=== PATIENT | female | born 1980 | race Caucasian/White ===

== ENCOUNTER 2017-01-28 05:33 | Inpatient (IN) | payer OTHER ==
[2017-01-28] VITALS (9 sets, daily range): BP systolic 114–141; BP diastolic 59–74
[~2017-01-28] VITALS: Ht 154.9 cm; Wt 75.0 kg
[~2017-01-28 05:33] MED LIST: PRENTAB55 PO
[2017-01-28] MEDS ORDERED: LR 1,000 ML IV SCH (06:00)
[2017-01-28] MEDS ORDERED: BICITRA 30ML SOLN UDC PO ONE (06:00)
[2017-01-28] MEDS ORDERED: LR 1,000 ML IV ONE (06:00)
[2017-01-28 06:19] LABS: MEAN CORPUSCULAR HEMOGLOBIN 33.5 pg (27.0-33.0); MEAN CORPUSCULAR HGB CONC 35.2 g/dl (32.0-36.5); MEAN CORPUSCULAR VOLUME 95.2 fl (80.0-96.0); WHITE BLOOD COUNT 9.1 K/mm3 (4.0-10.0)
[2017-01-28] MEDS ORDERED: MORPHINE PRES-FREE INJ 10 MG/10 ML VIAL (J2274) As Ordered ONE (08:19)
[2017-01-28] MEDS ORDERED: ePHEDrine SULFATE 25 MG/5 ML(5MG/ML) SYRINGE As Ordered ONE (08:19)
[2017-01-28] MEDS ORDERED: OXYTOCIN INJ 10 UNITS/ML VIAL (J2590) As Ordered ONE (08:19)
[2017-01-28] MEDS ORDERED: PHENYLephrine HCL 500 MCG/5 ML (100MCG/ML) SYRINGE (J2370) As Ordered ONE (08:19)
[2017-01-28] MEDS ORDERED: ONDANSETRON 4MG/2ML VIAL (J2405) As Ordered ONE (08:20)
[2017-01-28] MEDS ORDERED: KETOROLAC 60 MG/2 ML VIAL (J1885) As Ordered ONE (08:20)
[2017-01-28] MEDS ORDERED: MIDAZOLAM INJ 2 MG/2 ML VIAL (J2250) As Ordered ONE (09:48)
[2017-01-28] MEDS ORDERED: fentaNYL 100 MCG/2 ML INJECTION (J3010) As Ordered ONE ×2 (09:51→10:48)
[2017-01-28] MEDS ORDERED: SUCCINYLCHOLINE 100 MG/5 ML SYRINGE (J0330) As Ordered ONE ×2 (09:54→10:24)
[2017-01-28] MEDS ORDERED: PROPOFOL 200 MG/20 ML VIAL As Ordered ONE ×2 (10:24→10:46)
[2017-01-28] MEDS ORDERED: ROCURONIUM BROMIDE 50 MG/5 ML VIAL As Ordered ONE (10:24)
[2017-01-28] MEDS ORDERED: ceFAZolin 1GM INJ (J0690) As Ordered ONE (10:40)
[2017-01-28] MEDS ORDERED: ONDANSETRON 4MG/2ML VIAL (J2405) IV PRN (11:15)
[2017-01-28] MEDS ORDERED: MEASLES,MUMPS,RUBELLA VACCINE INJ (MMR-II) (90707) SC SCH (11:15)
[2017-01-28] MEDS ORDERED: RHOGAM 300 MCG (1500 IU) INJ (J2790) IM SCH (11:15)
[2017-01-28] MEDS ORDERED: PERCOCET 5MG/325MG TAB PO PRN (11:15)
[2017-01-28] MEDS: LR 1,000 ML IV SCH ×2 (13:30→20:29)
[2017-01-28] MEDS: KETOROLAC 30 MG/ML VIAL (J1885) IV SCH ×2 (15:49→21:02)
[2017-01-28] MEDS: DOCUSATE SODIUM 100 MG CAP PO SCH (21:01)
--- NOTE | 2017-01-28 22:22 | RO ---
DATE OF PROCEDURE: 01/28/2017 PREPROCEDURE DIAGNOSIS: Term intrauterine with a history of prior section. POSTPROCEDURE DIAGNOSES: 1. Term intrauterine with a history of prior section, delivered. 2. Extensive intra-abdominal adhesions, including dense adhesions of the bladder to the uterus. Thin lower uterine segment. OPERATION PERFORMED: Repeat low transverse section. SURGEON: Naila Dan MD DELI ASSOCIATE: Dr. Alfonso Alvarado and Dr. Case Chua CLINICAL SERVICE: Obstetrics. ANESTHESIA: Spinal, converted to general endotracheal anesthesia MATERIAL FORWARDED TO LAB FOR EXAMINATION: None. DESCRIPTION OF FINDINGS: There were dense adhesions of the uterus within the peritoneal cavity, such that the uterus could not be exteriorized. The bladder was adhered high up on the uterus. In repairing the hysterotomy, it was very difficult to avoid injury to the bladder, such that we had to take stitches down and backfill the bladder to confirm that there was no bladder injury. There was no bladder injury; however, the amount of good lower uterine segment that was available to close the hysterotomy was very limited and so the lower uterine segment is very thin and it is not advisable that she become again in the future. Female , OT position. Copious amniotic fluid. scores of 8 and 9. Weight 3612 grams, which is 7 pounds 15 ounces. Ovaries and fallopian tubes were not observed given that the uterus could not be exteriorized. INFECTION CLASSIFICATION: II. INDICATION FOR OPERATION: Gayatri is a 37-year-old, 2, now para 2-0-0-2 who has a history of a prior section that was performed in [place] at 39 weeks for abruption in the setting of preeclampsia and she desired a repeat section. This current was uncomplicated. ESTIMATED BLOOD LOSS: 600 mL. FLUIDS: 3100 mL of lactated Ringers. URINE OUTPUT: 500 mL of clear yellow urine. DESCRIPTION OF PROCEDURE: Gayatri was taken to the operating room, spinal anesthesia was administered. Odom catheter and bilateral sequential compression devices (SCD) were placed. She was prepped and draped in a normal sterile fashion in the dorsal supine position with a left lateral tilt. Time-out was performed to confirm her name, date of , procedure, and indications. The surgical team, nursing staff, and anesthesia were all in agreement. Spinal anesthesia was found to be adequate using an Allis clamp. She received 2 grams of IV Ancef prophylactically and she was re-dosed with 1 gram at the end of the case given that the surgery took 2-1/2 hours. A Pfannenstiel skin incision was made through the previous Pfannenstiel scar from her previous operation. Scalpel was employed and the incision carried down through to the underlying layer of fascia. The fascia was incised in the midline, and the incision was extended laterally with Blake scissors. Superior and inferior aspects of the fascial incision were grasped with Stacia clamps, elevated, and the underlying rectus muscles were dissected off bluntly and sharply. The peritoneum was entered digitally, and the rectus muscles were in the midline. It was very apparent as we entered the peritoneum that there were extensive adhesions of the uterus within the intraperitoneal cavity. The peritoneal incision was extended superiorly and inferiorly with good visualization of the bladder. It was noted that the bladder was adhesed high up on the uterus with adhesions on the sides of the bladder over to the peritoneum, higher than would be expected normally. Bladder blade was inserted and it was noted that we could not make a bladder flap given that there was no vesicouterine peritoneum that could be easily pulled up to create the flap. After acknowledging adhesion of the bladder to the uterus, we made the hysterotomy slightly higher, approximately 1 cm or so than we otherwise would have. We scored the lower uterine segment in a transverse fashion with a scalpel and entered the uterus bluntly and extended the incision with traction. Copious amniotic fluid was noted. The bladder blade was remove and the 's head was elevated to the level of the incision. Vacuum was applied but did not get adequate suction and immediately popped off. We then made an incision in the right rectus bundle and the head was then easily delivered occiput transverse through the hysterotomy as fundal pressure was applied. Head was delivered atraumatically and the anterior shoulder, posterior shoulder, and corpus were delivered without difficulty. Nose and mouth were suctioned with bulb suction, and cord was clamped times two and cut. The infant was handed off to the awaiting nursing team. The placenta was removed manually. The uterus was left in situ given that we could not exteriorize it with the dense adhesions above. We cleared the uterus of all clots and debris with a dry lap. We repaired the uterine incision with #0 Vicryl suture in a running locking fashion, noting the bladder was adhered up high on the lower uterine segment. We did apply a second layer of #0 Monocryl in an imbricating fashion and inspected the incision and noted at that point that the bladder was very close so we backfilled the bladder with formula and with backfilling the bladder approximately 60 mL, we noted that the top of the dome of the bladder was very close to the hysterotomy. There was no blood in the Odom and there was no leak of the formula onto the surgical field; however, just given the proximity, there was concern that over time she could develop a uterovesical fistula, and so we took out the imbricating suture line and even still it appeared to have areas where the bladder was brought up too close to the hysterotomy. At that point, I called for Dr. Chua to come in to consult. He agreed with our assessment. We began at that point to open up the hysterotomy in a few locations where the bladder was caught up into the hysterotomy. We then dissected the area thoroughly, bringing the bladder line away from the hysterotomy incision; however, there was very thin lower uterine segment available to re-close with #0 Vicryl suture. It was completely closed and hemostatic and there was no bladder injury whatsoever. Jared was applied over the hysterotomy line. With backfilling the bladder again, there was no leakage of formula onto the surgical field. However, given how much adhesion she has within the abdomen, given how thin the lower uterine segment layer is, we advised that she does not become again given potential for complications in the future. (Patient is aware of this recommendation.) At that point, we used #0 Vicryl suture to close the small rectus incision that was previously made. There was good hemostasis there. We also reapproximated the rectus muscles to one another to be able to cover the bladder using #0 Vicryl suture in two figure of eights. We reapproximated the fascia with #0 Vicryl suture in a running fashion. I copiously irrigated the subcutaneous tissue. The Sihloh's fascia was reapproximated using #3-0 Vicryl suture in a running fashion. Skin edges were reapproximated using three inverted, interrupted stitches using #3-0 Vicryl suture, followed by a running subcuticular stitch using #4-0 Monocryl suture. The incision was cleaned using a wet lap, dried with a dry lap. Steri-Strips were applied in the usual fashion perpendicular to the Pfannenstiel incision. Telfa was layered on top of the Steri-Strips, followed by a dry sterile towel. Surgical drapes were removed, and the sterile towel was removed and a pressure applied over the entire surgical incision. The vagina was cleared of all blood clot without active bleeding noted. Fundus was firm at the umbilicus. All counts were correct times two. Procedure was without complications, and she tolerated the procedure well. She did have to be converted to general endotracheal anesthesia while we were repairing the hysterotomy the second time. She was awakened from general endotracheal anesthesia in good condition. She was taken to the recovery room on labor and delivery. CARIN
[2017-01-29] VITALS (7 sets, daily range): BP systolic 110–144; BP diastolic 60–85
[2017-01-29] MEDS: KETOROLAC 30 MG/ML VIAL (J1885) IV SCH ×2 (02:37→09:10)
[2017-01-29] MEDS: LR 1,000 ML IV SCH ×3 (05:30→21:30)
[2017-01-29 07:07] LABS: MEAN CORPUSCULAR HEMOGLOBIN 33.4 pg (27.0-33.0); MEAN CORPUSCULAR HGB CONC 34.6 g/dl (32.0-36.5); MEAN CORPUSCULAR VOLUME 96.5 fl (80.0-96.0); RED CELL DISTRIBUTION WIDTH 12.3 % (11.5-14.5); WHITE BLOOD COUNT 10.2 K/mm3 (4.0-10.0)
[2017-01-29] MEDS: PRENATAL VITAMIN TAB PO SCH (09:10)
[2017-01-29] MEDS: DOCUSATE SODIUM 100 MG CAP PO SCH ×2 (09:10→21:49)
--- NOTE | 2017-01-29 12:32 | IPNPDOC ---
Text Note Date of Service The patient was seen on 01/29/17. NOTE Post-Op Day 1 Gayatri is a 37yo [id number] doing well on post-op day 1 s/p uncomplicated RLTCS at 39w1d. Surgery notable for close proximity of hysterotomy to the bladder, but bladder interrogation with back-filling revealed no defect and no blood in the urine. Odom was kept in for 24hr after surgery to prevent discomfort with urination given the extent of bladder manipulation we performed. She is with ease. Lochia normal, spontaneously voiding and ambulating without difficulty. Tolerating regular diet. Denies f/c/n/v/SOB/CP/CARABALLO /abdominal pain. Last night temp of 100.9F temporal documented at 0200 then immediately re-taken was 100.5F. Pt never felt febrile. 2hr re-check with NO tylenol in-between was completely normal. Vitals wnl, afebrile Exam: General: WDWN, NAD, resting comfortably Abdomen: soft, NTTP, fundus firm u-2cm, pfannensteil with no surrounding erythema or drainage, steri strips intact Extremities: no tenderness of calves bilaterally Labs: H/H (admission): 13.1/37.3 H/H (POD 1): 10.9/31.6 Assessment: Gayatri is a 37yo [id number] doing well on post-op day 1 s/p uncomplicated RLTCS at 39w1d. Vitals wnl, benign exam. No e/o infection, hemodynamically stable. Plan: -routine post-op/post- care -Regular diet -motrin/percocet prn pain -Encourage ambulation and and use of IS -possible discharge to home tomorrow Dr. Daly Dan MD [place] CHERYL VS,Laura, I+O VS, Laura, I+O Laboratory Tests 01/29/17 06:41 Red Blood Count 3.27 L, Mean Corpuscular Volume 96.5 H, Mean Corpuscular Hemoglobin 33.4 H, Mean Corpuscular Hemoglobin Concent 34.6, Red Cell Distribution Width 12.3 Vital Signs Date Time Temp Pulse Resp B/P Pulse Ox O2 Delivery O2 Flow Rate FiO2 01/29/17 10:09 99.8 115 16 135/80 99 Room Air I&O- Last 24 Hours up to 6 AM 01/29/17 06:00 Intake Total 5825 ml Output Total 4500 ml Balance 1325 ml DALY DAN MD Jan 29, 2017 12:32
[2017-01-29] MEDS: IBUPROFEN 800 MG TAB PO SCH (16:23)
[2017-01-30] MEDS: IBUPROFEN 800 MG TAB PO SCH ×3 (01:32→17:56)
[2017-01-30] MEDS: LR 1,000 ML IV SCH ×3 (05:30→21:30)
[2017-01-30 05:59] VITALS: BP 134/82
[2017-01-30] MEDS: DOCUSATE SODIUM 100 MG CAP PO SCH ×2 (08:22→22:25)
[2017-01-30] MEDS: PRENATAL VITAMIN TAB PO SCH (08:22)
[2017-01-30] MEDS: PERCOCET 5MG/325MG TAB PO PRN ×2 (14:43→22:25)
[2017-01-30 18:04] VITALS: BP 142/90
[2017-01-31] MEDS: LR 1,000 ML IV SCH (01:06)
[2017-01-31] MEDS: IBUPROFEN 800 MG TAB PO SCH ×2 (01:36→08:10)
[2017-01-31 06:14] VITALS: BP 111/65
--- NOTE | 2017-01-31 08:08 | IPNPDOC ---
Text Note Date of Service The patient was seen on 01/31/17. NOTE Post-Op Day 3 Gayatri is a 37yo [id number] doing well on post-op day 3 s/p uncomplicated RLTCS at 39w1d. Surgery notable for close proximity of hysterotomy to the bladder, but bladder interrogation with back-filling revealed no defect and no blood in the urine. Odom was kept in for 24hr after surgery to prevent discomfort with urination given the extent of bladder manipulation we performed. She is with ease. Lochia normal, spontaneously voiding and ambulating without difficulty. Tolerating regular diet. Denies f/c/n/v/SOB/CP/CARABALLO /abdominal pain. States she feels very well. Vitals wnl, afebrile Exam: General: WDWN, NAD, resting comfortably Cardiac: S1S2 present, no murmur Lungs: CTAB, no w/c/r Abdomen: soft, NTTP, fundus firm u-2cm, pfannensteil with no surrounding erythema or drainage, steri strips intact Extremities: no tenderness of calves bilaterally Labs: H/H (admission): 13.1/37.3 H/H (POD 1): 10.9/31.6 Assessment: Gayatri is a 37yo [id number] doing well on post-op day 3 s/p uncomplicated RLTCS at 39w1d. Vitals wnl, benign exam. No e/o infection, hemodynamically stable. Plan: -discharge to home today -post-op visit in 2 weeks as scheduled -discharge meds given: motrin, lanolin, percocet, miralax -return precautions discussed Dr. Daly Dan MD [place] [facility] VS,Fishbone, I+O VS, Fishbone, I+O Vital Signs Date Time Temp Pulse Resp B/P Pulse Ox O2 Delivery O2 Flow Rate FiO2 01/31/17 06:14 99.0 84 18 111/65 96 Room Air I&O- Last 24 Hours up to 6 AM 01/31/17 06:00 Intake Total 720 ml Output Total 2100 ml Balance -1380 ml DALY DAN MD Jan 31, 2017 08:08
[2017-01-31] MEDS: PRENATAL VITAMIN TAB PO SCH (08:09)
[2017-01-31] MEDS: DOCUSATE SODIUM 100 MG CAP PO SCH (08:09)
--- NOTE | 2017-01-31 08:14 | DS.PDOC ---
Discharge Summary General Date of Admission Jan 28, 2017 at 05:33 Date of Discharge January 31, 2017 Attending Physician: DALY MURRAY MD Discharge Summary PROCEDURES PERFORMED DURING STAY: Repeat low transverse section ADMITTING DIAGNOSES: 1. Term intrauterine with history of prior section desiring repeat 2. Advanced maternal age DISCHARGE DIAGNOSES: 1. Term intrauterine with history of prior section desiring repeat 2. Advanced maternal age 3. Extensive intra-abdominal adhesions related to prior section, dense bladder adhesions 4. Thin lower uterine segment at time of repair, discussed with patient increased risk with future pregnancies COMPLICATIONS/CHIEF COMPLAINT: History Of Prior Section. HISTORY OF PRESENT ILLNESS/HOSPITAL COURSE: Gayatri is a 37yo [id number] doing well on post-op day 3 s/p uncomplicated repeat low transverse section at 39 weeks 1 day. Surgery notable for close proximity of hysterotomy to the bladder, but bladder interrogation with back-filling revealed no defect and no blood in the urine. Mendez was kept in for 24hr after surgery to prevent discomfort with urination given the extent of bladder manipulation we performed, and she had no issues with voiding after mendez removal. Benign post-operative course. At time of discharge she had normal vitals and benign exam. No evidence of infection, hemodynamically stable. DISCHARGE MEDICATIONS: motrin, lanolin, percocet, miralax ALLERGIES: Please see below. PHYSICAL EXAMINATION ON DISCHARGE: Vitals wnl, afebrile Exam: General: WDWN, NAD, resting comfortably Cardiac: S1S2 present, no murmur Lungs: CTAB, no w/c/r Abdomen: soft, NTTP, fundus firm u-2cm, pfannensteil with no surrounding erythema or drainage, steri strips intact Extremities: no tenderness of calves bilaterally LABORATORY DATA: H/H (admission): 13.1/37.3 H/H (POD 1): 10.9/31.6 ACTIVITY: As tolerated, vaginal rest for 6 weeks DIET: regular DISCHARGE PLAN: -discharge to home today -post-op visit in 2 weeks as scheduled -discharge meds given -return precautions discussed DISPOSITION: home DISCHARGE INSTRUCTIONS: 1. Keep incision clean and dry, remove steri strips in 1 week 2. No heavy lifting greater than weight of baby DISCHARGE CONDITION: Stable TIME SPENT ON DISCHARGE: Greater than 30 minutes. MD Asha Saini Vital Signs/I&Os Vital Signs Date Time Temp Pulse Resp B/P Pulse Ox O2 Delivery O2 Flow Rate FiO2 01/31/17 06:14 99.0 84 18 111/65 96 Room Air I&O- Last 24 Hours up to 6 AM 01/31/17 06:00 Intake Total 720 ml Output Total 2100 ml Balance -1380 ml Discharge Medications Scheduled Multivitamins/ ( 19) 1 Tab Tab 1 TAB PO DAILY (Reported) Allergies Coded Allergies: No Known Allergies (Unverified , 01/21/17) DALY MURRAY MD Jan 31, 2017 08:14
[2017-01-31] MEDS ORDERED: IBUP-1114 PO (08:20)
[2017-01-31] MEDS ORDERED: OXYC1TAB23 PO ×2 (08:21→08:23)
== END 2017-01-31 12:20 | disposition home or self-care (01) | DRG 766 ==
LOC: M LDI 05:33 → M OBS 13:34
PROVIDERS: ADMIT Obstetrics & Gynecology; ATTEND Obstetrics & Gynecology
PROC: 10D00Z1 Extraction of Products of Conception, Low, Open Approach (ICD-10-PCS; principal; 2017-01-28 07:30)
DX: O34.211 Maternal care for low transverse scar from previous cesarean delivery (principal); Z3A.39 39 weeks gestation of pregnancy; O94 Sequelae of complication of pregnancy, childbirth, and the puerperium; N85.8 Other specified noninflammatory disorders of uterus; Z37.0 Single live birth

== ENCOUNTER → 2018-02-17 | Outpatient (CLI) | payer OTHER | LOC: M RAD 12:07 | DX: N63.20 Unspecified lump in the left breast, unspecified quadrant (principal) ==